=== PATIENT | female | born 1945 | race Caucasian/White ===

== ENCOUNTER 2020-10-31 09:50 | Outpatient (CLI) | payer MEDICARE, OTHER, MEDICAID ==
[~2020-10-31] VITALS: Ht 162.6 cm; Wt 59.1 kg
[2020-10-31 11:02] VITALS: BP 118/61; PULSE 91
[2020-10-31] MEDS ORDERED: PULMICORT0.5 MG/2 M IH (11:35)
[2020-10-31] MEDS ORDERED: SINEMET 25/101 UDTAB PO (11:35)
[2020-10-31] MEDS ORDERED: PROAIR HFA0.09 MG/AC IH (11:35)
[2020-10-31] MEDS ORDERED: DALIRESP500 MCG PO (11:36)
[2020-10-31] MEDS ORDERED: KLONOPIN 1MG1 MG PO (11:36)
[2020-10-31] MEDS ORDERED: LASIX 40MG TABL40 MG PO (11:36)
[2020-10-31] MEDS ORDERED: INCRUSE EL62.5 MCG/A IH (11:37)
[2020-10-31] MEDS ORDERED: ATROVENT I0.2 MG/1 M IH (11:38)
[2020-10-31] MEDS ORDERED: MYRBETR50MG PO (11:40)
[2020-10-31] MEDS ORDERED: NAMENDA 10MG TA10 MG PO (11:40)
[2020-10-31] MEDS ORDERED: SYNTHROID0.088 MG/T PO (11:40)
[2020-10-31] MEDS ORDERED: PROTONIX 40MG T40 MG PO (11:41)
[2020-10-31] MEDS ORDERED: K-DUR 10 MEQ T10 MEQ PO (11:42)
[2020-10-31] MEDS ORDERED: LYRICA 75MG CAP75 MG PO (11:43)
[2020-10-31] MEDS ORDERED: MIRAPEX1.5 MG PO (11:43)
[2020-10-31] MEDS ORDERED: EXELON13.3TDM (11:44)
[2020-10-31] MEDS ORDERED: 00186-0370-20 IH (11:44)
[2020-10-31] MEDS ORDERED: AMBIEN 5MG TABLE5 MG PO (11:45)
[2020-10-31] MEDS ORDERED: EFFEXOR 75M75 MG/TAB PO (11:45)
[2020-10-31] MEDS ORDERED: THEO-24400 MG PO (11:45)
[2020-10-31 14:00] VITALS: BP 116/53; PULSE 90
--- NOTE | 2020-10-31 14:00 | NUR ---
DC instructions reviewed with pt and daughter. Both express understanding. Pt is steady on feet in room and to restroom. She has tolerated PO food and fluid without issue. INT DC'd with catheter intact. She is assisted out by wheelchair to daughter's car.
== END 2020-10-31 14:00 | disposition home or self-care (01) ==
LOC: COL.CAR 09:50
DX: R42 Dizziness and giddiness (principal); J44.9 Chronic obstructive pulmonary disease, unspecified; Z85.118 Personal history of other malignant neoplasm of bronchus and lung; E11.42 Type 2 diabetes mellitus with diabetic polyneuropathy; F41.9 Anxiety disorder, unspecified; G20 Parkinson's disease; F17.200 Nicotine dependence, unspecified, uncomplicated